=== PATIENT | male | born 1995 | race Caucasian/White ===

== ENCOUNTER 2019-01-31 08:02 | Day surgery (SDC) | payer BC ==
[~2019-01-31] VITALS: Ht 185.4 cm; Wt 78.8 kg
--- NOTE | 2019-01-31 08:27 | NUR ---
01/31/19 0827 Janis Gutierrez PT WITH SEIZURE TYPE ACTIVITY WITH IV START, PASSED OUT. BP 111/56 HR 50 RR 16. PT BACK AWAKE, COOL WASH CLOTH TO HEAD. PT AWAKE AND TALKING, DR PORRAS AT BEDSIDE TO DO CONSENT. FAMILY AT BEDSIDE. PT STABLE, ALERT AND TALKING.
== END 2019-01-31 10:17 | disposition home or self-care (01) ==
LOC: ORSCSDS 08:02
PROVIDERS: Otolaryngology
PROC: 0CTPXZZ Resection of Tonsils, External Approach (ICD-10-PCS; principal; 2019-01-31 09:05)
DX: J35.1 Hypertrophy of tonsils (principal); R13.12 Dysphagia, oropharyngeal phase
CPT/HCPCS: 88304; J0330; J1100; J2250; J2405; J2704; J3010; J7120

== ENCOUNTER 2019-02-07 02:20 | Emergency (ER) | payer BC ==
[~2019-02-07] VITALS: Ht 185.4 cm; Wt 79.4 kg
[2019-02-07] MEDS ORDERED: HYDR1TAB94 (02:38)
== END 2019-02-07 04:17 | disposition home or self-care (01) ==
LOC: ER 02:20
DX: J95.830 Postprocedural hemorrhage of a respiratory system organ or structure following a respiratory system procedure (principal); Z79.891 Long term (current) use of opiate analgesic
CPT/HCPCS: 99282